=== PATIENT | female | born 1945 | race Two or more races ===

== ENCOUNTER 2017-01-14 17:42 | Emergency (ER) | payer MEDICARE ==
[2017-01-14 19:42] VITALS: BP 102/71
[2017-01-14] MEDS ORDERED: Albuterol/Ipratropium NEB.SOL* Albuterol 2.5 MG/Ipratropium 0.5 MG 3 ML INH ONE (20:21)
--- NOTE | 2017-01-14 20:21 | UC ---
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 - Allergies/Home Medications Allergies/Adverse Reactions: Allergies Allergy/AdvReac Type Severity Reaction Status Date / Time Acetaminophen [From Tylenol] Allergy Anaphylatic Verified 01/14/17 19:43 Shock Home Medications: Home Medications Atenolol TAB* [Tenormin TAB* 25 MG] 01/14/17 [History] Benzonatate CAP* [Tessalon 100 MG CAP*] 01/14/17 [History] Guaifenesin-Codeine [Codeine/Guaifenesin 100-10 mg/5Ml] 01/14/17 [History Confirmed 01/14/17] Guaifenesin/Pseudo 600/60(NF) [Mucinex D 600/60 (NF)] 01/14/17 [History] Losartan Potassium 01/14/17 [History] PMH/Surg Hx/FS Hx/Imm Hx Previously Healthy: Yes - crohn's Cardiovascular History Of: Reports: Cardiac Disorders - murmur - Surgical History Surgical History: Yes Surgery Procedure, Year, and Place: GI resection 2011 - Social History Alcohol Use: Rare Substance Use Type: None Smoking Status (MU): Never Smoked Tobacco Review of Systems Constitutional: Negative Skin: Negative Eyes: Negative ENT: Negative Respiratory: Shortness Of Breath, Cough Cardiovascular: Negative Gastrointestinal: Negative Genitourinary: Negative Motor: Negative Neurovascular: Negative Musculoskeletal: Negative Neurological: Negative Psychological: Negative All Other Systems Reviewed And Are Negative: Yes Physical Exam Triage Information Reviewed: Yes Appearance: No Pain Distress, Well-Nourished Vital Signs: Initial Vital Signs Temp 98.4 F 01/14/17 19:37 Pulse 87 01/14/17 19:37 Resp 18 01/14/17 19:37 BP 102/71 01/14/17 19:37 Pulse Ox 99 01/14/17 19:37 Vital Signs Reviewed: Yes Eyes: Positive: Conjunctiva Clear ENT: Positive: Pharyngeal erythema, Nasal congestion, Nasal drainage, TMs normal , Other: - frontal and maxillary sinus tenderness Neck: Positive: No Lymphadenopathy Respiratory: Positive: No respiratory distress, No accessory muscle use, Wheezing - in the bases Cardiovascular: Positive: RRR, No Murmur, Pulses Normal Abdomen Description: Positive: Nontender, Soft Bowel Sounds: Positive: Present Musculoskeletal: Positive: No Edema Neurological Exam: Normal Psychological Exam: Normal Skin Exam: Normal Re-Evaluation - Re-Evaluation First Eval Change: Improved - more air movement , less wheezing, rhonchi in RML LLL Throat Pain/Nasal Course/Dx - Course Course Of Treatment: exam completed. will trewat for sinsuitis and bronchitis - Differential Dx/Diagnosis Differential Diagnosis/HQI/PQRI: Sinusitis, Other - bronchitis, pneumonia Provider Diagnoses: sinusitis, bronchitis Discharge - Discharge Plan Condition: Stable Disposition: HOME Prescriptions: Clarithromycin TAB* [Biaxin 500 MG TAB*] 500 mg PO BID #20 tab Guaifenesin-Codeine [Cheratussin AC] 10 ml PO TID PRN #120 ml MDD 30 ml PRN Reason: Cough Patient Education Materials: Acute Bronchitis (ED), Sinusitis (ED) Referrals: No Primary Care Phys,NOPCP [Primary Care Provider] - [facility] [Outside] Additional Instructions: Please take antibiotic as directed Use your albuterol inhaler every 4-6 hours when needed for wheezing, shortness of breath or uncontrolled coughing. Increase fluids and rest Take acetaminophen or ibuprofen for fever or pain Please review your discharge instructions. If your symptoms do not improve please call your primary care provider or return to urgent care.
--- NOTE | 2017-01-14 21:41 | RAD ---
Indication: Cough, fever. 2 views of the chest including dual energy PA views are reviewed. No mediastinal shift is noted. Heart is of normal size and configuration. No pleural fluid, pneumonia or pneumothorax is noted. IMPRESSION: No active cardiopulmonary disease is identified.
== END 2017-01-14 22:09 | disposition home or self-care (01) ==
LOC: UCEAST 17:42
DX: J40 Bronchitis, not specified as acute or chronic (principal); J32.9 Chronic sinusitis, unspecified; Z88.6 Allergy status to analgesic agent
CPT/HCPCS: 71020; 99212; A9270-GY; G0463

== ENCOUNTER 2019-12-06 08:00 | Inpatient (IN) | payer MEDICARE ==
[~2019-12-06 08:00] MED LIST: Buffered Lidocaine 1% SYRIN* 1 ML/SYRINGE INTRADERM ONE; Lactated Ringers 1000 ML Bag* 1,000 ML IV SCH
[2019-12-06] MEDS ORDERED: Dexamethasone IV* 4 MG/ML 1 ML (4 MG) ONE (08:19)
[2019-12-06] MEDS ORDERED: Glycopyrrolate IV* 0.2 MG/ML 1 ML VIAL ONE (08:19)
[2019-12-06] MEDS ORDERED: Ondansetron INJ* 2 MG/ML VIAL ONE (08:19)
[2019-12-06] MEDS ORDERED: Propofol* 10 MG/ML 20 ML BTL ONE (08:19)
[2019-12-06] MEDS ORDERED: Ketorolac INJ* 30 MG/ML 1 ML VIAL ONE (08:19)
[2019-12-06] MEDS ORDERED: fentaNYL* 50 MCG/ML 2 ML VIAL (100 MCG VIAL) ONE ×3 (08:20→13:39)
[2019-12-06] MEDS ORDERED: Rocuronium* 10 MG/ML VIAL ONE ×2 (08:20→12:43)
[2019-12-06] MEDS ORDERED: Buffered Lidocaine 1% SYRIN* 1 ML/SYRINGE INTRADERM ONE (08:43)
[2019-12-06] MEDS ORDERED: ceFAZolin 2 GM in NS PREMIX(*) 2 GM/100 ML BAG IVPB ONE (08:43)
[2019-12-06] MEDS ORDERED: Heparin VIAL(*) 5000 UNITS/ML VIAL (FIVE THOUSAND) ONE (09:29)
[2019-12-06] MEDS ORDERED: Bupivacaine 0.5% W/EPI SDV* 30 ML VIAL ONE (09:32)
[2019-12-06 09:36] LABS: BUN/Creatinine Ratio 35.7 (8-20); Calcium 9.9 mg/dL (8.6-10.3); EGFR African American 99.5 (>60); EGFR Non-African American 82.3 (>60)
[2019-12-06] MEDS ORDERED: Naloxone* 0.4 MG/ML 1 ML VIAL IV PRN (10:34)
[2019-12-06] MEDS ORDERED: Sugammadex * 500 MG/5 ML VIAL IV PUSH ONE (10:50)
[2019-12-06] MEDS ORDERED: Ketorolac INJ* 15 MG/ML 1 ML VIAL IV PUSH PRN (13:13)
--- NOTE | 2019-12-06 13:13 | BRIEFOPN ---
Brief Operative/Procedure Note - Operation Details Pre-Op Diagnosis: Ventral hernia Post-Op Diagnosis: same Procedures: robotic repair ventral hernia with mesh Surgeon(s)/Proceduralists: Benjamin. Assist: JUSTINA Mullen; JUSTINA Anthony Anesthesia: GET. Fluids: 1000 ml RL Estimated Blood Loss: none Findings: as above Specimen(s)/Culture(s) Description: none Complications: none
[2019-12-06] MEDS ORDERED: HYDROmorphone INJ1* 1 MG/ML SYRINGE IV SLOW PU PRN (13:21)
[2019-12-06] MEDS ORDERED: Fluticasone NASAL SPRAY 50MCG* 16 gm SPRAY BTL BOTH NARES PRN (13:22)
[2019-12-06] MEDS ORDERED: Famotidine TAB* 20 MG PO PRN (13:22)
[2019-12-06] MEDS ORDERED: Ondansetron INJ* 2 MG/ML VIAL IV PRN (13:22)
[2019-12-06] MEDS: fentaNYL* 50 MCG/ML 2 ML VIAL (100 MCG VIAL) IV PRN ×4 (13:40→13:55)
[2019-12-06] MEDS ORDERED: HYDROmorphone INJ1* 1 MG/ML SYRINGE ONE (14:04)
[2019-12-06] MEDS: HYDROmorphone INJ1* 1 MG/ML SYRINGE IV SLOW PU PRN ×2 (14:06→15:03)
[2019-12-06] MEDS: Lactated Ringers 1000 ML Bag* 1,000 ML IV SCH (16:52)
[2019-12-06] MEDS: Losartan TAB* 25 MG PO SCH (20:39)
[2019-12-06] MEDS: traMADol TAB* 50 MG PO PRN (20:39)
[2019-12-06] MEDS: Heparin VIAL(*) 5000 UNITS/ML VIAL (FIVE THOUSAND) SUBCUT SCH (22:11)
[2019-12-07] MEDS: traMADol TAB* 50 MG PO PRN (02:56)
[2019-12-07] MEDS: Lactated Ringers 1000 ML Bag* 1,000 ML IV SCH (05:44)
[2019-12-07] MEDS: HYDROmorphone INJ* 0.5 MG/0.5 ML SYRINGE IV SLOW PU PRN (05:52)
[2019-12-07] MEDS: Heparin VIAL(*) 5000 UNITS/ML VIAL (FIVE THOUSAND) SUBCUT SCH ×3 (05:53→22:23)
--- NOTE | 2019-12-07 08:46 | PN ---
Progress Note - Progress Note Date of Service: 12/07/19 Note: S: POD #1. Difficulty w/ pain mgmt last night, but only had Toradol x 1 and Dilaudid 0.5 mg x 1 (as well as Tramadol, which she feels is not effective). No N/V. Feels bloated. No flatus or BM. Has only ambulated to thus far. O: Vital Signs - 8 hr 12/07/19 12/07/19 12/07/19 02:56 04:07 05:52 Temperature 98.2 F Pulse Rate 71 Respiratory 18 17 17 Rate Blood Pressure 145/66 (mmHg) O2 Sat by Pulse 95 Oximetry 12/07/19 12/07/19 12/07/19 05:57 05:58 07:59 Temperature 98.1 F Pulse Rate 71 Respiratory 17 17 12 Rate Blood Pressure 152/66 (mmHg) O2 Sat by Pulse 93 Oximetry Intake and Output Last 24 Hours 12/05/19 12/06/19 12/07/19 12/08/19 06:59 06:59 06:59 06:59 Intake Total 3305 Output Total 1100 Balance 2205 Weight 146 lb Intake: IV Fluids 2290 LR 2290 Oral 1015 Output: Urine 1050 Estimated Blood Loss 50 Gen: WN; NAD Heart:reg Lungs: clear, though only fair inspiratory effort Abd: mildly distended, tympanitic. BS hypoactive. Sl firm w/ tenderness primarily over site of repair. Lap sites ok. A: s/p robotic ventral hernia repair w/ mesh; okay, though w/ inadequate pain mgmt P: will change toradol to scheduled; encouraged her to use the Dilaudid as ordered to maximize pain control and enable her to walk more and use IS.
[2019-12-07] MEDS: Ketorolac INJ* 15 MG/ML 1 ML VIAL IV PUSH SCH ×3 (09:14→22:22)
[2019-12-07] MEDS: Losartan TAB* 25 MG PO SCH (22:22)
[2019-12-08] MEDS: Ketorolac INJ* 15 MG/ML 1 ML VIAL IV PUSH SCH ×2 (03:30→08:12)
[2019-12-08] MEDS: Heparin VIAL(*) 5000 UNITS/ML VIAL (FIVE THOUSAND) SUBCUT SCH ×3 (05:59→22:32)
[2019-12-08 06:03] LABS: Hematocrit 35 % (35-47); Hemoglobin 12.2 g/dL (12.0-16.0); Mean Platelet Volume 9.2 fL (7.4-10.4); Platelet Count 176 10^3/uL (150-450)
[2019-12-08] MEDS: POTASSIUM CHLORIDE IV SCH ×2 (10:12→23:18)
[2019-12-08] MEDS: DEXTROSE IV SCH ×2 (10:12→23:18)
[2019-12-08] MEDS: [UNRECOGNIZED DRUG - OTHER] IV SCH ×2 (10:12→23:18)
--- NOTE | 2019-12-08 10:15 | PN ---
Progress Note - Progress Note Date of Service: 12/08/19 SOAP: Subjective:uncomfortable with bloating;no nausea;no flatus or bm;belching; ambulating and using inspiron [] Objective: Vital Signs Temp 97.9 F 12/08/19 07:45 Pulse 77 12/08/19 07:45 Resp 18 12/08/19 08:00 BP 140/73 12/08/19 08:37 Pulse Ox 94 12/08/19 07:45 Intake & Output 12/07/19 12/08/19 12/08/19 18:59 06:59 18:59 Intake Total 739 320 520 Output Total 650 500 100 Balance 89 -180 420 Intake: IV Fluids 259 LR 259 Oral 480 320 520 Output: Urine 650 500 100 lungs:clear anterior;heart:RRR;abd:few bs;distended;incisions c/d/i with skin glue;wearing abd binder [] Assessment:POD#2 robotic ventral hernia repair,postop ileus [] Plan:clear liquid diet;ambulate;inspiron;await GI function []
[2019-12-08] MEDS: HYDROmorphone INJ* 0.5 MG/0.5 ML SYRINGE IV SLOW PU PRN (15:20)
[2019-12-08] MEDS: traMADol TAB* 50 MG PO PRN (20:51)
[2019-12-08] MEDS: Losartan TAB* 25 MG PO SCH (20:52)
--- NOTE | 2019-12-08 22:17 | OP ---
CC: Colleen Burris MD* OPERATIVE REPORT: DATE OF OPERATION: 12/06/19 - Inpatient, [facility] [id number] DATE OF : 49 SURGEON: Papo Alexander MD ROCKET TEST FIRE WORKER: JUSTINA Flores ANESTHESIOLOGIST: Dr. Jeffers. ANESTHESIA: General endotracheal. PRE-OP DIAGNOSIS: Ventral incisional hernia. POST-OP DIAGNOSIS: Ventral incisional hernia. OPERATIVE PROCEDURE: Robotic repair of ventral incisional hernia with mesh. ESTIMATED BLOOD LOSS: None. IV FLUIDS: 1 L crystalloid. SPECIMEN: None. DRAINS: None. COMPLICATIONS: None. COUNTS: Instrument, needle, and sponge counts correct. DESCRIPTION OF PROCEDURE: The patient was brought to the operating room and placed on the table supine. Sequential compression devices were placed on both lower extremities. General anesthesia was administered. The abdomen was prepped and draped in the usual sterile fashion. Time-out was performed. Local anesthetic was infiltrated into the skin and soft tissue prior to making each incision. Entry into the abdomen was through a left upper quadrant incision accommodating an 8 mm optical trocar. After accessing the peritoneal cavity, carbon dioxide was insufflated to a pressure of 12 mmHg and the laparoscope was introduced. Inspection revealed a large lower midline ventral incisional hernia. There was small bowel adherent within this as well as omentum. Under direct visualization, 2 additional 8 mm trocars were placed in the left side of the abdomen. The robot was docked. The adhesiolysis proceeded with completely freeing all adhesions from within the hernia sac. The hernia measured approximately 8 cm in length from the umbilicus inferiorly above the symphysis. The adhesiolysis was performed sharply. The entire hernia was evacuated of all omentum and small bowel and the adhesiolysis proceeded around the circumference of the defect down to the pelvis to make sure that all bowel was free and clear from the abdominal wall. Next, the hernia defect was closed primarily using 0 Stratafix PDS and to aid in closure, the intraperitoneal pressures were decreased to 9 mmHg. Three sutures were used for the closure. More superiorly the sutures were run from both caudad and cephalad in the cephalad direction. The sutures run from just above the umbilicus imbricating this area slightly in order to anchor the Stratafix suture and the sutures overlapped across the incision and then after assuring that the closure was secure, it was decided to place an intraperitoneal onlay mesh using the Bard Ventralight mesh with the echo positioning system. A 6 x 8 inch mesh was placed into the peritoneal cavity through a 12 mm port that had been introduced through the left upper quadrant incision and this was then positioned centering at over the area of the defect and it was then secured circumferentially with running 3-0 V-Loc 90 suture. Due to the difficulties with attempting to further plicate the central portions of the mesh with the suture, it was elected to use a Figment CapSure tacker instead to perform this and therefore, the robot was undocked and then a tacker was used to create an inner crown of tacks with additional tacks placed through secure the central portions of the mesh. After assuring hemostasis, the ports were removed under direct visualization and carbon dioxide was released. The incisions were closed with 4-0 Monocryl in subcuticular fashion. DermaFlex was applied. The patient tolerated the procedure well, was extubated and transferred to recovery in stable condition. [id number]/[facility] #: [id number] FARZANEH
[2019-12-09] MEDS: Heparin VIAL(*) 5000 UNITS/ML VIAL (FIVE THOUSAND) SUBCUT SCH ×3 (05:29→22:59)
[2019-12-09] MEDS ORDERED: Magnesium Hydroxide LIQ* 30 ML UDC PO PRN (07:20)
--- NOTE | 2019-12-09 08:40 | PN ---
Progress Note - Progress Note Date of Service: 12/09/19 SOAP: Subjective:still feels bloated;not hungry;no flatus or bm;no nausea;ambulating and using inspiron;shiraz clears [] Objective: Vital Signs Temp 99 F 12/09/19 07:25 Pulse 75 12/09/19 07:25 Resp 20 12/09/19 08:01 BP 167/81 12/09/19 07:25 Pulse Ox 95 12/09/19 07:25 Intake & Output 12/08/19 12/09/19 12/09/19 18:59 06:59 18:59 Intake Total 640 1390 Output Total 600 400 Balance 40 990 Intake: IV Fluids 990 D5W 1/2 NS 20 meq KCL 990 Oral 640 400 Output: Urine 600 400 Other: # Voids 2 lungs:fine crackles at bases;heart:RRR;abd:few hypoactive bs,mostly LLQ;softer than 3/5 but still distended;all incisions c/d/i,no infection;ext:no edema, nontender calves [] Assessment:POD#3,postop ileus s/p robotic ventral hernia repair with mesh [] Plan:Dulcolax suppository;possibly add another laxative continue IV fluids and clear liquids ambulate and push deep breathing(discussed with RN) []
[2019-12-09] MEDS: DEXTROSE IV SCH (12:38)
[2019-12-09] MEDS: POTASSIUM CHLORIDE IV SCH (12:38)
[2019-12-09] MEDS: [UNRECOGNIZED DRUG - OTHER] IV SCH (12:38)
[2019-12-09] MEDS: Docusate CAP* 100 MG PO PRN ×2 (12:38→20:07)
[2019-12-09] MEDS ORDERED: Magnesium CITRATE* 300 ML BTL PO ONE (13:51)
[2019-12-09] MEDS: Ketorolac INJ* 15 MG/ML 1 ML VIAL IV PUSH PRN ×2 (14:48→23:02)
[2019-12-09] MEDS: Losartan TAB* 25 MG PO SCH (20:04)
[2019-12-10] MEDS: DEXTROSE IV SCH (01:46)
[2019-12-10] MEDS: POTASSIUM CHLORIDE IV SCH (01:46)
[2019-12-10] MEDS: [UNRECOGNIZED DRUG - OTHER] IV SCH (01:46)
[2019-12-10] MEDS: Heparin VIAL(*) 5000 UNITS/ML VIAL (FIVE THOUSAND) SUBCUT SCH ×2 (07:36→13:12)
[2019-12-10] MEDS: Ketorolac INJ* 15 MG/ML 1 ML VIAL IV PUSH PRN (07:36)
[2019-12-10 07:37] VITALS: BP 158/75
[2019-12-10] MEDS ORDERED: Ibuprofen TAB* 400 MG PO PRN (08:14)
--- NOTE | 2019-12-10 08:24 | PN ---
Progress Note - Progress Note Date of Service: 12/10/19 SOAP: Subjective: Passing lots of flatus but no BM yet. Would like to eat. Pain controlled with only Toradol and expects to only need Advil at home. Doesn't want narcotics. Objective: Vital Signs Temp 98.8 F 12/10/19 07:36 Pulse 71 12/10/19 07:36 Resp 16 12/10/19 07:36 BP 158/75 12/10/19 07:36 Pulse Ox 97 12/10/19 07:36 Gen: NAD Abd: incisions c/d/i; +BS; softly distended; tender in lower abdomen to moderate palpation. Intake & Output 12/09/19 12/10/19 12/10/19 18:59 06:59 18:59 Intake Total 1350 1345 Output Total 1999 900 400 Balance -650 445 -400 Intake: IV Fluids 990 985 D5W 1/2 NS 20 meq KCL 990 985 Oral 360 360 Output: Urine 2000 900 400 Assessment: POD#4 s/p robotic VIHR with mesh. Resolved ileus. Plan: Home today. RTO 1-2 weeks. Cont colace, MOM prn, Advil prn pain.
== END 2019-12-10 13:30 | disposition home or self-care (01) | DRG 354 ==
LOC: OR 08:00 → UNDOADMOB 13:13 → SSU 13:13 → OBSVTOIN 12-07 14:00
PROVIDERS: ADMIT Surgery; ATTEND Surgery
PROC: 8E0W4CZ Robotic Assisted Procedure of Trunk Region, Percutaneous Endoscopic Approach (ICD-10-PCS; 2019-12-06)
PROC: 0WUF4JZ Supplement Abdominal Wall with Synthetic Substitute, Percutaneous Endoscopic Approach (ICD-10-PCS; principal; 2019-12-06 09:45)
DX: K43.2 Incisional hernia without obstruction or gangrene (principal); K56.7 Ileus, unspecified; M79.7 Fibromyalgia; L40.9 Psoriasis, unspecified; I10 Essential (primary) hypertension; K21.9 Gastro-esophageal reflux disease without esophagitis; Z88.6 Allergy status to analgesic agent; Z88.1 Allergy status to other antibiotic agents; Z91.011 Allergy to milk products; Z91.048 Other nonmedicinal substance allergy status
CPT/HCPCS: 36415; 80048; 85014; 85018; 85049; A9270-GY; C1781; G0378; J0690; J1100; J1170; J1644; J1885; J2405; J2704; J3010